=== PATIENT | male | born 1930 | race Caucasian/White ===

== ENCOUNTER 2017-03-11 12:21 | Emergency (ER) | payer MEDICARE ==
[2017-03-11 13:25] LABS: BILIRUBIN,URINE NEGATIVE (NEGATIVE)
[2017-03-11 13:36] LABS: UA w/ MICROSCOPIC CHARGE YES
[2017-03-11 13:37] LABS: WBC,URINE >25 /HPF (0-3)
[2017-03-11 13:38] LABS: UR CULTURE IF IND INDICATED
--- NOTE | 2017-03-11 13:56 | ED Physician Documentation ---
PD HPI MALE - Stated complaint Stated Complaint: MALE - Chief complaint Chief Complaint: UTI - History obtained from History obtained from: Patient - History of Present Illness Timing - onset: How many days ago (2-3) Timing - duration: Days Timing - details: Gradual onset, Still present Associated symptoms: Dysuria, Urinary frequency. No: Genital sore / lesion Similar symptoms before: Diagnosis (UTIs, with last one few years ago.) Recently seen: Not recently seen Review of Systems Constitutional: denies: Fever, Chills GI: denies: Nausea, Vomiting Musculoskeletal: denies: Back pain PD PAST MEDICAL HISTORY - Past Medical History Cardiovascular: Hypertension, High cholesterol - Past Surgical History Past Surgical History: Yes - Present Medications Home Medications: Ambulatory Orders Medication Instructions Recorded Confirmed Allopurinol 300 mg PO DAILY 03/11/17 03/11/17 Cephalexin [Keflex] 500 mg PO QID #24 capsule 03/11/17 Dorzolomide 1 drops LEFTEYE DAILY 03/11/17 03/11/17 Metoprolol Tartrate 50 mg PO DAILY 03/11/17 03/11/17 Omeprazole 20 mg PO DAILY 03/11/17 03/11/17 Potassium Chloride [Klor-Con 8] 8 meq PO DAILY 03/11/17 03/11/17 Pravastatin [Pravachol] 40 mg PO DAILY 03/11/17 03/11/17 Tamsulosin [Flomax] 0.4 mg PO DAILY 03/11/17 03/11/17 Warfarin [Coumadin] 7.5 mg PO DAILY 03/11/17 03/11/17 amLODIPine [Norvasc] 10 mg PO DAILY 03/11/17 03/11/17 - Allergies Allergies/Adverse Reactions: Allergies Allergy/AdvReac Type Severity Reaction Status Date / Time No Known Drug Allergies Allergy Verified 03/11/17 12:27 - Social History Does the pt smoke?: No Smoking Status: Never smoker Does the pt drink ETOH?: No Does the pt have substance abuse?: No PD ED PE NORMAL - Vitals Vital signs reviewed: Yes - General General: Alert and oriented X 3, No acute distress, Well developed/nourished - Abdomen Abdomen: Soft, Non tender - Male Male : Deferred - Rectal Rectal: Deferred - Back Back: No CVA TTP - Derm Derm: Normal color, Warm and dry Results - Vitals Vitals: Oxygen O2 Source Room air - Labs Labs: Microbiology 03/11/17 12:39 Urine Culture - Preliminary Urine,Clean Catch Laboratory Tests 03/11/17 12:39 Urine Color YELLOW Urine Clarity CLOUDY Urine pH 6.0 Ur Specific Gray 1.020 Urine Protein 100 H Urine Glucose (UA) NEGATIVE Urine Ketones NEGATIVE Urine Occult Blood MODERATE H Urine Nitrite NEGATIVE Urine Bilirubin NEGATIVE Urine Urobilinogen 0.2 (NORMAL) Ur Leukocyte Esterase LARGE H Urine RBC 11-25 H Urine WBC >25 H Urine WBC Clumps PRESENT Ur Squamous Epith Cells NONE SEEN Urine Bacteria Rare Ur Microscopic Review INDICATED Urine Culture Comments INDICATED PD MEDICAL DECISION MAKING - ED course Complexity details: reviewed results, considered differential, d/w patient Departure - Departure Disposition: 01 Home, Self Care Clinical Impression: UTI (urinary tract infection) Qualifiers: Urinary tract infection type: acute cystitis Hematuria presence: without hematuria Qualified Code(s): N30.00 - Acute cystitis without hematuria Condition: Stable Record reviewed to determine appropriate education?: Yes Instructions: ED UTI Cystitis Male Prescriptions: Cephalexin [Keflex] 500 mg PO QID #24 capsule Comments: Drink lots of fluids. Cephalexin as directed for 5 or 6 days. Recheck if not better over the next couple of days. Return sooner if worsening symptoms such as fever, pain, vomiting. Discharge Date/Time: 03/11/17 14:20
[2017-03-11] MEDS ORDERED: CEPHALEXIN 250 MG CAPSULE PO STA (14:09)
[2017-03-11] MEDS ORDERED: CEPHALEXIN 250 MG CAPSULE PO ONE (14:16)
[2017-03-11 14:22] VITALS: BP 132/76
== END 2017-03-11 14:20 | disposition home or self-care (01) ==
LOC: ED 12:21
DX: N30.00 Acute cystitis without hematuria (principal); I10 Essential (primary) hypertension; Z79.01 Long term (current) use of anticoagulants
CPT/HCPCS: 81001; 87086; 99282; 99283; A9270; 81003